=== PATIENT | female | born 2000 | race Caucasian/White ===

== ENCOUNTER 2022-11-22 06:36 | Day surgery (SDC) | payer OTHER ==
[2022-11-20 13:03] VITALS: BMI 35.6
[2022-11-22] MEDS ORDERED: Fentanyl 250 MCG/5 ML VIAL ONE ×2 (08:49→10:09)
[2022-11-22] MEDS ORDERED: Ferric Subsulfate (ASTRINGYN) 8 GM VIAL ONE (09:20)
[2022-11-22] MEDS ORDERED: Midazolam HCl 2 mg/2 ml Vial ONE (09:20)
[2022-11-22] MEDS ORDERED: Dexamethasone 20 MG/5 ML VIAL ONE (09:30)
[2022-11-22] MEDS ORDERED: PROPOFOL 200 MG/20 ML VIAL ONE (09:30)
[2022-11-22] MEDS ORDERED: Ondansetron PF 4 MG/2 ML Vial ONE ×2 (09:30→10:42)
[2022-11-22] MEDS ORDERED: Promethazine HCl 25 MG/ML VIAL ONE (12:03)
[2022-11-22] MEDS ORDERED: Hydrocodone-Acetamin 15 ML UDCUP ONE (12:42)
== END 2022-11-22 13:52 | disposition home or self-care (01) ==
LOC: SDC 06:36
PROVIDERS: ATTEND Otolaryngology Plastic Surgery within the Head & Neck
DX: J35.3 Hypertrophy of tonsils with hypertrophy of adenoids (principal); J35.01 Chronic tonsillitis; G47.30 Sleep apnea, unspecified; J45.909 Unspecified asthma, uncomplicated; Z88.0 Allergy status to penicillin
CPT/HCPCS: 88304; J1100; J2250; J2405; J2550; J2704; J3010